=== PATIENT | female | born 1950 | race Caucasian/White ===

== ENCOUNTER 2017-06-07 17:08 | Emergency (ER) | payer OTHER, MEDICARE ==
[~2017-06-07 17:08] MED LIST: CLIN150 PO; LEVO.2 PO; LORC10TA PO; SULF1TAB47 PO
[2017-06-07 17:15] VITALS: BP 141/79; PULSE 74; RESP 16; TEMP 98.3; O2SAT 97
[2017-06-07] MEDS ORDERED: LEVO150T7 PO (17:21)
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
[2017-06-07] MEDS ORDERED: ROBA500T PO (19:06)
== END 2017-06-07 19:19 | disposition home or self-care (01) ==
LOC: MERGE 17:08 → PHEFT 17:08
DX: S16.1XXA Strain of muscle, fascia and tendon at neck level, initial encounter (principal); S39.012A Strain of muscle, fascia and tendon of lower back, initial encounter; S80.02XA Contusion of left knee, initial encounter; F17.210 Nicotine dependence, cigarettes, uncomplicated; V89.2XXA Person injured in unspecified motor-vehicle accident, traffic, initial encounter
CPT/HCPCS: 72100; 72125; 73564; 99284